=== PATIENT | female | born 1995 | race Asian ===

== ENCOUNTER 2017-07-18 11:28 | Emergency (ER) | payer MEDICAID ==
[~2017-07-18] VITALS: Ht 162.6 cm; Wt 50.8 kg
[2017-07-18 11:48] VITALS: BP 130/83
== END 2017-07-18 12:52 | disposition home or self-care (01) ==
LOC: ER 11:28
DX: J20.9 Acute bronchitis, unspecified (principal); J03.90 Acute tonsillitis, unspecified
CPT/HCPCS: 71046